=== PATIENT | male | born 1985 | race Caucasian/White ===

== ENCOUNTER → 2016-07-18 | Outpatient (CLI) | payer BC, OTHER ==
--- NOTE | 2016-07-19 10:25 | Diagnostic Imaging Report ---
Indication: COUGH Technique: 2 views of the chest Comparison: none. Findings: Lungs and pleural spaces are clear. Heart size is normal. Is minimal thoracic scoliotic deformity. Impression: No acute process
== END | disposition home or self-care (01) ==
LOC: RAD 15:02
DX: R05 Cough (principal)
CPT/HCPCS: 71020